=== PATIENT | male | born 1965 | race Caucasian/White ===

== ENCOUNTER → 2019-08-09 14:20 | Outpatient (CLI) | payer OTHER, SELFPAY ==
--- NOTE | 2019-08-09 | DI.US.S_ITS ---
PROCEDURE: US SCROTUM INDICATIONS: LT TESTICULAR PAIN TECHNIQUE: Real-time scanning was performed of the scrotum and testicles, with image documentation. Color and pulse Doppler interrogation was performed of both testicles. COMPARISON: None. FINDINGS: Right: Testicle is normal in size at 5.0 x 2.4 x 2.7 cm, and homogenous in echotexture. Epididymis is normal in overall size and morphology. No hydrocele or varicoceles. Overlying scrotal skin is normal in thickness. Left: Testicle is normal in size at 5.2 x 2.7 x 3.8 cm, and homogeneous in echotexture. There is prominent peripheral vascularity noted. Epididymis is enlarged and heterogeneous. No Doppler assessment was performed.. No hydrocele or varicoceles. Overlying scrotal skin is normal in thickness. Doppler: Color and pulse Doppler demonstrate increased asymmetric left testicular blood flow. Normal flow seen within the right testis. IMPRESSION: 1. Enlarged and heterogeneous left epididymis with increased vascularity noted within the left testicle suggesting developing epididymoorchitis. Of note, no Doppler assessment was performed involving the left epididymis and if indicated, patient could return for repeat imaging. Dictated by: Barry Villegas [facility] Interpreted: Elinor Mckeon MD on 08/09/2019 at 15:20 Approved by: Elinor Mckeon M.D. on 08/09/2019 at 17:34
== END ==
PROVIDERS: Family Provider Family Medicine; PCP Family Medicine; Visit Provider Family Medicine
DX: N50.812 Left testicular pain (principal); N50.89 Other specified disorders of the male genital organs
CPT/HCPCS: 76870

== ENCOUNTER → 2019-08-12 11:26 | Outpatient (CLI) | payer OTHER, SELFPAY ==
[2019-08-12 12:17] LABS: Add Manual Diff / Slide Review NO; Basophils Absolute Auto 0 /uL (0-100); Basophils Percent Auto 0.4 % (0-2); Eosinophils Absolute Auto 0 /uL (0-450); Eosinophils Percent Auto 0.6 % (2-4); Hematocrit 42.9 % (41-53); Hemoglobin 14.8 g/dL (13.5-17.5); Lymphocytes Absolute Auto 700 /uL (1100-4500); Mean Corpuscular HGB Conc 34.5 % (30-36); Mean Corpuscular Hemoglobin 27.8 PG (26-34); Mean Corpuscular Volume 80.5 fL (80-100); Monocytes Absolute Auto 800 /uL (0-900); Monocytes Percent Auto 11.5 % (3-14); Neutrophils Absolute Auto 5700 /uL (1500-7000); Neutrophils Percent Auto 78.5 % (50-75); Platelet Count 193 X10^3/uL (150-400); Red Blood Cell Count 5.32 X10^6/uL (4.5-5.9); Red Cell Distribution Width 15.4 % (11.6-14.8); White Blood Cell Count 7.3 X10^3/uL (4.5-11.0)
== END ==
PROVIDERS: Family Provider Family Medicine; PCP Family Medicine; Visit Provider Family Medicine
DX: N50.812 Left testicular pain (principal)
CPT/HCPCS: 36415; 85025

== ENCOUNTER → 2019-08-12 12:07 | Outpatient (CLI) | payer OTHER, SELFPAY ==
--- NOTE | 2019-08-12 | DI.US.S_ITS ---
PROCEDURE: US SCROTUM INDICATIONS: LEFT TESTICULAR PAIN TECHNIQUE: Real-time scanning was performed of the scrotum and testicles, with image documentation. Color and pulse Doppler interrogation was performed of both testicles. COMPARISON: [facility], , US SCROTUM, 08/09/2019, 14:58. FINDINGS: Right: Testicle is normal in size at 4.9 x 2.7 x 3.0 cm, and homogenous in echotexture. Epididymis is normal in overall size and morphology. Subcentimeter epididymal cyst. No hydrocele or varicoceles. Overlying scrotal skin is normal in thickness. Left: Testicle is normal in size at 4.8 x 2.2 x 3.9 cm, and homogeneous in echotexture. Prominent peripheral vessels present. Epididymis is enlarged as before and hyperemic. No hydrocele or varicoceles. Overlying scrotal skin is normal in thickness. Doppler: Color and pulse Doppler demonstrate mild asymmetric increase in blood flow involving left testis exam prior examination. IMPRESSION: 1. Abnormal appearance of the left epididymis which is enlarged, heterogeneous and hyperemic as well as mild increase asymmetry in the left testicle suggesting epididymitis and orchitis. The findings are similar to the last examination. Dictated by: Barry DUNN Interpreted: Daniele Barnett MD on 08/12/2019 at 13:35 Approved by: Daniele Barnett M.D. on 08/12/2019 at 20:50
== END ==
PROVIDERS: Family Provider Family Medicine; PCP Family Medicine; Visit Provider Family Medicine
DX: N50.812 Left testicular pain (principal); N50.89 Other specified disorders of the male genital organs
CPT/HCPCS: 36415; 76870; 85025

== ENCOUNTER → 2019-08-15 13:58 | Outpatient (CLI) | payer OTHER, SELFPAY ==
--- NOTE | 2019-08-15 | DI.CT.S_ITS ---
PROCEDURE: CT KIDNEY URETER BLADDER (KUB) INDICATIONS: Unspecified abdominal pain TECHNIQUE: Noncontrast 5 mm thick sections acquired from the diaphragms to the symphysis. 5 mm thick coronal and sagittal reformats were then performed. For radiation dose reduction, the following was used: automated exposure control, adjustment of mA and/or kV according to patient size. COMPARISON: None. FINDINGS: Image quality: Excellent. Lung bases: Lung bases are clear. Heart size is normal. Urinary system: Both kidneys are normal in size. No kidney stones. Mild prominence of the left extrarenal pelvis and questionable cystic change near the left lower pole calyces. No hydronephrosis or perinephric fat stranding. Both ureters appear non-dilated throughout their expected courses. Bladder wall thickness is normal; no calcified bladder stones. Other solid organs: Liver is enlarged and mildly hypodense. The spleen is enlarged measuring 16.6 cm. Gallbladder contains focal, nonobstructing hyperdense material in the body and is partially decompressed around it. Pancreas is normal in contours. Spleen is normal in size. No adrenal nodules. Peritoneum and bowel: Laparoscopically placed gastric band around gastric cardia is in adequate position. The tubing appears continuous. The balloon does not appear to be fully inflated. Unenhanced bowel loops demonstrate normal wall thickness and caliber. No free fluid or air. Nodes and vessels: No retroperitoneal or mesenteric adenopathy by size criteria. Aorta and inferior vena cava are normal in caliber. Abdominal wall: No ventral hernias. Pelvis: No free pelvic fluid. No inguinal hernias or adenopathy. Bones: No suspicious bony lesions. Degenerative change in the right hip. No vertebral body compression fractures. IMPRESSION: 1. Mild left extrarenal pelvis prominence without hydroureter suggests physiologic change or partial ureteropelvic junction obstruction. 2. Inadequately evaluated lower pole parapelvic cystic change on the left. Consider CT IVP. 3. No urinary calcifications. 4. Hepatic steatosis and hepatosplenomegaly. 5. Satisfactory position of laparoscopically placed gastric band. 6. Cholelithiasis. Dictated by: Angie Conn M.D. on 08/15/2019 at 16:36 Approved by: Angie Conn M.D. on 08/15/2019 at 16:46
== END ==
PROVIDERS: PCP Family Medicine; Visit Provider Specialist
DX: R10.9 Unspecified abdominal pain (principal); K80.20 Calculus of gallbladder without cholecystitis without obstruction; R16.2 Hepatomegaly with splenomegaly, not elsewhere classified; K76.0 Fatty (change of) liver, not elsewhere classified; Z98.84 Bariatric surgery status
CPT/HCPCS: 74176